=== PATIENT | male | born 1945 | race Caucasian/White ===

== ENCOUNTER 2018-12-11 05:37 | Inpatient (IN) ==
[2018-12-11] MEDS ORDERED: MAGNESIUM SULF RIDER 2 GM in PREMIX 1 EACH IV PRN (06:07)
[2018-12-11] MEDS ORDERED: diphenhydrAMINE CAP 25 MG CAPSULE PO ONE (06:07)
[2018-12-11] MEDS ORDERED: POTASSIUM CHLORIDE RIDER 10 MEQ in PREMIX 1 EACH IV PRN (06:07)
[2018-12-11] MEDS ORDERED: ASPIRIN 325 MG TABLET PO ONE (06:07)
[2018-12-11] MEDS ORDERED: DIAZEPAM 5 MG TABLET PO ONE (06:07)
[2018-12-11] MEDS ORDERED: diphenhydrAMINE CAP 25 MG CAPSULE ONE (07:19)
[2018-12-11] MEDS ORDERED: DIAZEPAM 5 MG TABLET ONE (07:19)
[2018-12-11] MEDS: SODIUM CHLORIDE 0.9% 1,000 ML IV SCH ×2 (07:21→20:42)
[2018-12-11] MEDS ORDERED: HEPARIN/NACL 0.9% 2 UNITS/ML 1,000 ML IV ONE (08:09)
[2018-12-11] MEDS ORDERED: SODIUM BICARBONATE 2.4 MEQ/5 ML VIAL ONE (08:09)
[2018-12-11] MEDS ORDERED: LIDOCAINE 1% 20 ML VIAL ONE (08:09)
[2018-12-11] MEDS ORDERED: MIDAZOLAM 2 MG/2 ML VIAL ONE (08:34)
[2018-12-11] MEDS ORDERED: fentaNYL 100 MCG/2 ML VIAL ONE (08:35)
[2018-12-11] MEDS ORDERED: NITROGLYCERIN SL 0.4 MG TABLET SL PRN (10:10)
[2018-12-11] MEDS ORDERED: ONDANSETRON 4 MG/2 ML VIAL IV PRN (10:12)
[2018-12-11] MEDS ORDERED: ZALEPLON 5 MG CAPSULE PO PRN (10:12)
[2018-12-11] MEDS ORDERED: AZITHROMYCIN 250 MG TABLET PO ONE (10:18)
[2018-12-11] MEDS ORDERED: ALBUTEROL/IPRATROPIUM 3 ML NEB RESP TX PRN (10:21)
[2018-12-11] MEDS ORDERED: MONTELUKAST 10 MG TABLET PO SCH (14:30)
[2018-12-11 14:43] LABS: Calcium 8.2 MG/DL (8.5-10.1)
[2018-12-11 14:46] LABS: Albumin 3.2 G/DL (3.4-5.0); Bilirubin,Direct 0.2 MG/DL (0.0-0.20); Bilirubin,Indirect 0.5 MG/DL (0.0-1.0); Bilirubin,Total 0.7 MG/DL (0.2-1.0); Total Protein 6.3 G/DL (6.4-8.3)
[2018-12-11 14:47] LABS: Basophils # 0.1 10*3/uL (0.0-0.2); Basophils % 0.7 % (0.0-0.8); Eosinophils # 0.8 10*3/uL (0.0-0.87); Immature Granulocytes % 0.3 %; Immature Granulocytes Absolute 0.02 #; Lymphocytes # 1.9 10*3/uL (1.4-4.0); Lymphocytes % 26.2 % (21.2-54.2); Mean Corpuscular Volume 81.8 FL (87-102); Mean Platelet Volume 11.5 FL (9.6-12.0); Monocytes % 7.7 % (1.7-12.7); Neutrophils % 54.1 % (38.7-73.9); Platelet Count 206 T/CUMM (130-400); Red Blood Count 4.89 MC/CUMM (3.8-5.5); Red Cell Distribution Width 17.6 % (9.3-17.3); White Blood Count 7.1 T/CUMM (4-12)
[2018-12-11 15:20] LABS: Eosinophils 14 % (0-10); Lymphocytes 25 % (20-55); Platelet Estimate Normal; Segmented Neutrophils 57 % (50-85); Total Cells Counted 100
[2018-12-11] MEDS ORDERED: FUROSEMIDE 20 MG TABLET PO SCH (16:00)
[2018-12-11] MEDS: INSULIN ASPART PROTAMINE/ASPART 70/30 100 UNIT/ML SUBCUT SCH (20:43)
[2018-12-11] MEDS: ATORVASTATIN 40 MG TABLET PO SCH (20:44)
[2018-12-11] MEDS: MONTELUKAST 10 MG TABLET PO SCH (20:44)
[2018-12-11] MEDS: SACUBITRIL/VALSARTAN 49-51 MG TABLET PO SCH (20:44)
[2018-12-11] MEDS: ALBUTEROL/IPRATROPIUM 3 ML NEB RESP TX SCH (21:01)
[2018-12-11] MEDS: BUDESONIDE 0.5 MG/2 ML NEB RESP TX SCH (21:01)
[2018-12-12] MEDS: ALBUTEROL/IPRATROPIUM 3 ML NEB RESP TX SCH ×4 (02:12→19:06)
[2018-12-12 06:00] LABS: Basophils % 0.5 % (0.0-0.8); Eosinophils # 0.7 10*3/uL (0.0-0.87); Eosinophils % 9.5 % (0.00-10.9); Hematocrit 38.5 VOL% (42.0-52.0); Hemoglobin 11.5 GM/DL (14.0-18.0); Immature Granulocytes % 0.4 %; Immature Granulocytes Absolute 0.03 #; Lymphocytes # 1.4 10*3/uL (1.4-4.0); Lymphocytes % 18.8 % (21.2-54.2); Mean Corpuscular HGB Conc 29.9 GM/DL (32-36); Mean Corpuscular Volume 82.3 FL (87-102); Mean Platelet Volume 11.8 FL (9.6-12.0); Monocytes % 7.3 % (1.7-12.7); Neutrophils % 63.5 % (38.7-73.9); Platelet Count 176 T/CUMM (130-400); Red Blood Count 4.68 MC/CUMM (3.8-5.5); Red Cell Distribution Width 17.5 % (9.3-17.3); White Blood Count 7.5 T/CUMM (4-12)
[2018-12-12] MEDS: SODIUM CHLORIDE 0.9% 1,000 ML IV SCH (06:06)
[2018-12-12 06:33] LABS: Calcium 8.2 MG/DL (8.5-10.1)
[2018-12-12] MEDS: BUDESONIDE 0.5 MG/2 ML NEB RESP TX SCH ×2 (07:13→19:06)
[2018-12-12] MEDS: SACUBITRIL/VALSARTAN 49-51 MG TABLET PO SCH ×2 (09:26→21:12)
[2018-12-12] MEDS: MELOXICAM 7.5 MG TABLET PO SCH (09:26)
[2018-12-12] MEDS: AZITHROMYCIN 250 MG TABLET PO SCH (09:27)
[2018-12-12] MEDS: MONTELUKAST 10 MG TABLET PO SCH ×2 (09:27→21:12)
[2018-12-12] MEDS: NEBIVOLOL 10 MG TABLET PO SCH (09:27)
[2018-12-12] MEDS: SPIRONOLACTONE 25 MG TABLET PO SCH (09:27)
[2018-12-12] MEDS: ASPIRIN EC 325 MG TABLET PO SCH (09:27)
[2018-12-12] MEDS: CLOPIDOGREL 75 MG TABLET PO SCH (09:27)
[2018-12-12] MEDS: FUROSEMIDE 40 MG/4 ML VIAL IV SCH ×2 (09:28→17:04)
[2018-12-12] MEDS: PANTOPRAZOLE 40 MG TABLET PO SCH (09:28)
[2018-12-12] MEDS: amLODIPine 10 MG TABLET PO SCH (09:28)
[2018-12-12] MEDS: INSULIN ASPART PROTAMINE/ASPART 70/30 100 UNIT/ML SUBCUT SCH ×2 (09:32→23:54)
[2018-12-12] MEDS: ATORVASTATIN 40 MG TABLET PO SCH (21:13)
[2018-12-13] MEDS: ALBUTEROL/IPRATROPIUM 3 ML NEB RESP TX SCH ×3 (00:57→13:42)
[2018-12-13 04:38] LABS: Basophils # 0.1 10*3/uL (0.0-0.2); Basophils % 0.7 % (0.0-0.8); Eosinophils # 1.1 10*3/uL (0.0-0.87); Eosinophils % 14.6 % (0.00-10.9); Hematocrit 39.3 VOL% (42.0-52.0); Hemoglobin 11.9 GM/DL (14.0-18.0); Immature Granulocytes % 0.3 %; Immature Granulocytes Absolute 0.02 #; Lymphocytes # 1.7 10*3/uL (1.4-4.0); Lymphocytes % 22.8 % (21.2-54.2); Mean Corpuscular HGB Conc 30.3 GM/DL (32-36); Mean Corpuscular Volume 81.2 FL (87-102); Mean Platelet Volume 11.6 FL (9.6-12.0); Monocytes % 7.2 % (1.7-12.7); Neutrophils % 54.4 % (38.7-73.9); Platelet Count 196 T/CUMM (130-400); Red Blood Count 4.84 MC/CUMM (3.8-5.5); Red Cell Distribution Width 17.5 % (9.3-17.3); White Blood Count 7.2 T/CUMM (4-12)
[2018-12-13 05:00] LABS: Calcium 8.4 MG/DL (8.5-10.1); Osmolality,Calculated 287.1 MOS/KG (273-304)
[2018-12-13 06:20] LABS: Eosinophils 10 % (0-10); Lymphocytes 10 % (20-55); Segmented Neutrophils 80 % (50-85); Total Cells Counted 100
[2018-12-13 06:21] LABS: Anisocytosis 1+; Platelet Estimate Adequate
[2018-12-13] MEDS: BUDESONIDE 0.5 MG/2 ML NEB RESP TX SCH (07:13)
[2018-12-13] MEDS: CLOPIDOGREL 75 MG TABLET PO SCH (08:55)
[2018-12-13] MEDS: FUROSEMIDE 40 MG/4 ML VIAL IV SCH (08:55)
[2018-12-13] MEDS: NEBIVOLOL 10 MG TABLET PO SCH (08:55)
[2018-12-13] MEDS: AZITHROMYCIN 250 MG TABLET PO SCH (08:55)
[2018-12-13] MEDS: MONTELUKAST 10 MG TABLET PO SCH (08:55)
[2018-12-13] MEDS: SACUBITRIL/VALSARTAN 49-51 MG TABLET PO SCH (08:55)
[2018-12-13] MEDS: MELOXICAM 7.5 MG TABLET PO SCH (08:55)
[2018-12-13] MEDS: amLODIPine 10 MG TABLET PO SCH (08:55)
[2018-12-13] MEDS: ASPIRIN EC 325 MG TABLET PO SCH (08:55)
[2018-12-13] MEDS: SPIRONOLACTONE 25 MG TABLET PO SCH (08:55)
[2018-12-13] MEDS: PANTOPRAZOLE 40 MG TABLET PO SCH (08:55)
[2018-12-13] MEDS: INSULIN ASPART PROTAMINE/ASPART 70/30 100 UNIT/ML SUBCUT SCH (08:56)
[2018-12-13 12:03] VITALS: BP 155/74
[2018-12-13] MEDS ORDERED: ASCORBIC ACID 500 MG TABLET PO SCH (21:00)
== END 2018-12-13 15:25 | disposition home or self-care (01) | DRG 286 ==
LOC: N.CL 05:37 → N.TELES 13:54
PROVIDERS: ADMIT Internal Medicine Cardiovascular Disease; ATTEND Internal Medicine Cardiovascular Disease
PROC: CLCCHCL (ICD-10-PCS; 2018-12-11 09:15)

== ENCOUNTER 2020-06-26 09:21 | Inpatient (IN) ==
[2020-06-26] MEDS ORDERED: MORPHINE 4 MG/1 ML VIAL IV STA (09:43)
[2020-06-26] MEDS ORDERED: FUROSEMIDE 100 MG/10 ML VIAL IV STA (09:43)
[2020-06-26] MEDS ORDERED: ALBUTEROL 2.5 MG/3 ML NEB RESP TX STA ×2 (09:47→11:56)
[2020-06-26 10:26] LABS: Basophils # 0.1 10*3/uL (0.0-0.2); Basophils % 0.6 % (0.0-0.8); Eosinophils # 0.1 10*3/uL (0.0-0.87); Eosinophils % 1.1 % (0.00-10.9); Hematocrit 39.6 VOL% (42.0-52.0); Hemoglobin 12.8 GM/DL (14.0-18.0); Immature Granulocytes % 0.6 %; Immature Granulocytes Absolute 0.07 #; Lymphocytes # 1.1 10*3/uL (1.4-4.0); Lymphocytes % 9.5 % (21.2-54.2); Mean Corpuscular HGB Conc 32.3 GM/DL (32-36); Mean Corpuscular Volume 85.2 FL (87-102); Mean Platelet Volume 11.4 FL (9.6-12.0); Monocytes % 5.2 % (1.7-12.7); Platelet Count 288 T/CUMM (130-400); Red Blood Count 4.65 MC/CUMM (3.8-5.5); Red Cell Distribution Width 15.8 % (9.3-17.3); Troponin I 0.481 NG/ML (0.00-0.045); White Blood Count 11.3 T/CUMM (4-12)
[2020-06-26 10:52] LABS: Bilirubin,Urine Negative (Negative); Blood, Urine Negative (Negative); Glucose,Urine (UA) 50 mg/dL (Negative); Hyaline Casts,Urine 5 /LPF (0-3); Ketones,Urine 20 mg/dL (Negative); Mucus,Urine Occasional /LPF (Occasional); Nitrite,Urine Negative (Negative); Protein,Urine 100 MG/DL; RBC,Urine 1 /HPF (0-4); Urine Appearance CLEAR (Clear); Urine Color Yellow (Yellow); Urine Specific Gravity 1.016 (1.001-1.035); Urine Urobilinogen < 2.0 EU/DL (0.2-1.0); WBC,Urine 1 /HPF (0-6)
[2020-06-26 10:54] LABS: Albumin 3.8 G/DL (3.4-5.0); Bilirubin,Total 1.5 MG/DL (0.2-1.0); Calcium 8.6 MG/DL (8.5-10.1); Total Protein 7.1 G/DL (6.4-8.3)
[2020-06-26] MEDS ORDERED: GLUCAGON 1 MG VIAL IM PRN (13:20)
[2020-06-26] MEDS ORDERED: DEXTROSE 50% 25 GM/50 ML VIAL IV PRN (13:20)
[2020-06-26] MEDS ORDERED: ONDANSETRON 4 MG/2 ML VIAL IV PRN (13:20)
[2020-06-26] MEDS ORDERED: ALBUTEROL/IPRATROPIUM 3 ML NEB RESP TX PRN (14:39)
[2020-06-26 16:04] LABS: CKMB % 7.4 %
[2020-06-26 16:12] LABS: Troponin I 2.4 NG/ML (0.00-0.045)
[2020-06-26] MEDS ORDERED: ASPIRIN 325 MG TABLET PO ONE (16:21)
[2020-06-26] MEDS ORDERED: NITROGLYCERIN SL 0.4 MG TABLET SL PRN (16:21)
[2020-06-26] MEDS ORDERED: MORPHINE 4 MG/1 ML VIAL IV PRN (16:21)
[2020-06-26] MEDS ORDERED: FUROSEMIDE 40 MG/4 ML VIAL IV ONE (17:04)
[2020-06-26] MEDS ORDERED: ALBUTEROL/IPRATROPIUM 3 ML NEB RESP TX SCH (19:00)
[2020-06-26 21:29] LABS: CKMB % 7.4 %
[2020-06-27 06:52] LABS: Basophils # 0.1 10*3/uL (0.0-0.2); Basophils % 0.9 % (0.0-0.8); Eosinophils # 0.3 10*3/uL (0.0-0.87); Eosinophils % 4.1 % (0.00-10.9); Hematocrit 36.5 VOL% (42.0-52.0); Hemoglobin 11.6 GM/DL (14.0-18.0); Immature Granulocytes % 0.5 %; Immature Granulocytes Absolute 0.03 #; Lymphocytes # 1.3 10*3/uL (1.4-4.0); Mean Corpuscular HGB Conc 31.8 GM/DL (32-36); Mean Corpuscular Volume 87.5 FL (87-102); Neutrophils % 63.5 % (38.7-73.9); Platelet Count 176 T/CUMM (130-400); Red Blood Count 4.17 MC/CUMM (3.8-5.5); Red Cell Distribution Width 16.3 % (9.3-17.3); White Blood Count 6.4 T/CUMM (4-12)
[2020-06-27 07:37] LABS: Calcium 8.3 MG/DL (8.5-10.1); Osmolality,Calculated 274.1 MOS/KG (273-304)
[2020-06-27] MEDS: FUROSEMIDE 40 MG/4 ML VIAL IV SCH (08:52)
[2020-06-27] MEDS: PANTOPRAZOLE 40 MG TABLET PO SCH (08:52)
[2020-06-27] MEDS: POTASSIUM CHLORIDE 20 MEQ TABLET PO PRN ×3 (08:56→23:51)
[2020-06-27] MEDS ORDERED: methylPREDNISolone SOD SUC 125 MG/2 ML VIAL IV ONE (09:26)
[2020-06-27] MEDS ORDERED: ALBUTEROL/IPRATROPIUM 3 ML NEB RESP TX ONE (09:26)
[2020-06-27 09:32] LABS: Troponin I 1.74 NG/ML (0.00-0.045)
[2020-06-27] MEDS ORDERED: ENOXAPARIN 40 MG/0.4 ML SYRINGE SUBCUT SCH (12:00)
[2020-06-27] MEDS: ALBUTEROL/IPRATROPIUM 3 ML NEB RESP TX SCH ×2 (13:26→19:11)
[2020-06-27] MEDS: ENOXAPARIN 100 MG/ML SYRINGE SUBCUT SCH ×2 (14:07→23:51)
[2020-06-27] MEDS: carvediloL 12.5 MG TABLET PO SCH (16:42)
[2020-06-27] MEDS: methylPREDNISolone SOD SUC 40 MG/1 ML VIAL IV SCH (21:24)
[2020-06-27] MEDS: SACUBITRIL/VALSARTAN 49-51 MG TABLET PO SCH (21:24)
[2020-06-28] MEDS: ALBUTEROL/IPRATROPIUM 3 ML NEB RESP TX SCH ×4 (00:59→19:10)
[2020-06-28 06:49] LABS: Hematocrit 35.4 VOL% (42.0-52.0); Hemoglobin 11.1 GM/DL (14.0-18.0); Immature Granulocytes % 0.7 %; Immature Granulocytes Absolute 0.04 #; Lymphocytes # 0.4 10*3/uL (1.4-4.0); Lymphocytes % 7.5 % (21.2-54.2); Mean Corpuscular HGB Conc 31.4 GM/DL (32-36); Mean Corpuscular Volume 87.8 FL (87-102); Mean Platelet Volume 11.5 FL (9.6-12.0); Monocytes % 4.4 % (1.7-12.7); Neutrophils % 87.4 % (38.7-73.9); Platelet Count 244 T/CUMM (130-400); Red Blood Count 4.03 MC/CUMM (3.8-5.5); Red Cell Distribution Width 15.9 % (9.3-17.3); White Blood Count 5.7 T/CUMM (4-12)
[2020-06-28 07:12] LABS: Calcium 8.8 MG/DL (8.5-10.1); Osmolality,Calculated 285.8 MOS/KG (273-304)
[2020-06-28] MEDS: SPIRONOLACTONE 25 MG TABLET PO SCH (09:18)
[2020-06-28] MEDS: CLOPIDOGREL 75 MG TABLET PO SCH (09:18)
[2020-06-28] MEDS: PANTOPRAZOLE 40 MG TABLET PO SCH (09:18)
[2020-06-28] MEDS: SACUBITRIL/VALSARTAN 49-51 MG TABLET PO SCH ×2 (09:18→22:05)
[2020-06-28] MEDS: ATORVASTATIN 80 MG TABLET PO SCH (09:18)
[2020-06-28] MEDS: FUROSEMIDE 40 MG/4 ML VIAL IV SCH (09:19)
[2020-06-28] MEDS: methylPREDNISolone SOD SUC 40 MG/1 ML VIAL IV SCH (09:19)
[2020-06-28] MEDS: carvediloL 12.5 MG TABLET PO SCH ×2 (09:19→16:17)
[2020-06-28] MEDS: ASPIRIN EC 325 MG TABLET PO SCH (09:21)
[2020-06-28] MEDS ORDERED: DEXTROSE 50% 25 GM/50 ML VIAL IV PRN ×2 (09:25→13:13)
[2020-06-28] MEDS ORDERED: GLUCAGON 1 MG VIAL IM PRN ×2 (09:25→13:13)
[2020-06-28] MEDS: ENOXAPARIN 100 MG/ML SYRINGE SUBCUT SCH (11:37)
[2020-06-28] MEDS: INSULIN LISPRO 100 UNIT/ML SUBCUT SCH ×2 (16:17→22:06)
[2020-06-29] MEDS: ENOXAPARIN 100 MG/ML SYRINGE SUBCUT SCH ×3 (00:11→23:55)
[2020-06-29] MEDS: ALBUTEROL/IPRATROPIUM 3 ML NEB RESP TX SCH ×5 (02:02→23:57)
[2020-06-29 05:14] LABS: Hematocrit 32.4 VOL% (42.0-52.0); Hemoglobin 10.5 GM/DL (14.0-18.0); Immature Granulocytes % 1.2 %; Immature Granulocytes Absolute 0.09 #; Lymphocytes # 0.9 10*3/uL (1.4-4.0); Lymphocytes % 11.5 % (21.2-54.2); Mean Corpuscular HGB Conc 32.4 GM/DL (32-36); Mean Corpuscular Volume 87.6 FL (87-102); Mean Platelet Volume 11.4 FL (9.6-12.0); Monocytes % 7.3 % (1.7-12.7); Platelet Count 207 T/CUMM (130-400); Red Cell Distribution Width 16.5 % (9.3-17.3); White Blood Count 7.8 T/CUMM (4-12)
[2020-06-29 05:38] LABS: Calcium 8.8 MG/DL (8.5-10.1); Osmolality,Calculated 290.5 MOS/KG (273-304)
[2020-06-29] MEDS: ATORVASTATIN 80 MG TABLET PO SCH (09:29)
[2020-06-29] MEDS: CLOPIDOGREL 75 MG TABLET PO SCH (09:29)
[2020-06-29] MEDS: carvediloL 12.5 MG TABLET PO SCH (09:29)
[2020-06-29] MEDS: INSULIN LISPRO 100 UNIT/ML SUBCUT SCH ×4 (09:30→20:36)
[2020-06-29] MEDS: ASPIRIN EC 325 MG TABLET PO SCH (09:30)
[2020-06-29] MEDS: SACUBITRIL/VALSARTAN 49-51 MG TABLET PO SCH ×2 (09:30→20:36)
[2020-06-29] MEDS: predniSONE 20 MG TABLET PO SCH (09:30)
[2020-06-29] MEDS: SPIRONOLACTONE 25 MG TABLET PO SCH (09:30)
[2020-06-29] MEDS: PANTOPRAZOLE 40 MG TABLET PO SCH (09:30)
[2020-06-29] MEDS: FUROSEMIDE 40 MG/4 ML VIAL IV SCH (09:30)
[2020-06-29] MEDS ORDERED: AZITHROMYCIN INJ 500 MG in SODIUM CHLORIDE 0.9% 250 ML IV SCH (11:00)
[2020-06-29] MEDS ORDERED: cefTRIAXone 1,000 MG in SODIUM CHLORIDE 0.9% 100 ML IV SCH (11:00)
[2020-06-29] MEDS: cefTRIAXone 1,000 MG in SYRINGE 1 EACH IV SCH (11:50)
[2020-06-29] MEDS: AZITHROMYCIN INJ 500 MG in SODIUM CHLORIDE 0.9% 250 ML IV SCH (13:35)
[2020-06-29] MEDS: NEBIVOLOL 5 MG TABLET PO SCH (20:36)
[2020-06-30 05:51] LABS: Eosinophils # 0.2 10*3/uL (0.0-0.87); Eosinophils % 2.8 % (0.00-10.9); Hematocrit 37.4 VOL% (42.0-52.0); Hemoglobin 11.3 GM/DL (14.0-18.0); Immature Granulocytes % 0.5 %; Immature Granulocytes Absolute 0.04 #; Lymphocytes % 13.5 % (21.2-54.2); Mean Corpuscular HGB Conc 30.2 GM/DL (32-36); Mean Corpuscular Volume 91.7 FL (87-102); Mean Platelet Volume 11.7 FL (9.6-12.0); Monocytes % 8.7 % (1.7-12.7); Neutrophils % 74.5 % (38.7-73.9); Platelet Count 217 T/CUMM (130-400); Red Blood Count 4.08 MC/CUMM (3.8-5.5); Red Cell Distribution Width 16.1 % (9.3-17.3); White Blood Count 7.5 T/CUMM (4-12)
[2020-06-30 06:09] LABS: Calcium 8.7 MG/DL (8.5-10.1); Osmolality,Calculated 290.5 MOS/KG (273-304)
[2020-06-30] MEDS: ALBUTEROL/IPRATROPIUM 3 ML NEB RESP TX SCH ×3 (07:31→19:21)
[2020-06-30] MEDS: ASPIRIN EC 325 MG TABLET PO SCH (09:19)
[2020-06-30] MEDS: SACUBITRIL/VALSARTAN 49-51 MG TABLET PO SCH ×2 (09:19→20:55)
[2020-06-30] MEDS: PANTOPRAZOLE 40 MG TABLET PO SCH (09:19)
[2020-06-30] MEDS: CLOPIDOGREL 75 MG TABLET PO SCH (09:20)
[2020-06-30] MEDS: SPIRONOLACTONE 25 MG TABLET PO SCH (09:20)
[2020-06-30] MEDS: ATORVASTATIN 80 MG TABLET PO SCH (09:20)
[2020-06-30] MEDS: predniSONE 20 MG TABLET PO SCH (09:20)
[2020-06-30] MEDS: NEBIVOLOL 5 MG TABLET PO SCH ×2 (09:25→20:55)
[2020-06-30] MEDS: INSULIN LISPRO 100 UNIT/ML SUBCUT SCH ×4 (10:25→20:56)
[2020-06-30] MEDS: cefTRIAXone 1,000 MG in SYRINGE 1 EACH IV SCH (11:15)
[2020-06-30] MEDS: ENOXAPARIN 100 MG/ML SYRINGE SUBCUT SCH ×2 (11:53→23:35)
[2020-06-30] MEDS: AZITHROMYCIN INJ 500 MG in SODIUM CHLORIDE 0.9% 250 ML IV SCH (14:09)
[2020-06-30] MEDS: FUROSEMIDE 40 MG/4 ML VIAL IV SCH (16:38)
[2020-07-01] MEDS: ALBUTEROL/IPRATROPIUM 3 ML NEB RESP TX SCH ×3 (00:09→12:45)
[2020-07-01 04:55] LABS: Basophils % 0.1 % (0.0-0.8); Eosinophils # 0.4 10*3/uL (0.0-0.87); Eosinophils % 5.6 % (0.00-10.9); Hematocrit 36.8 VOL% (42.0-52.0); Hemoglobin 11.3 GM/DL (14.0-18.0); Immature Granulocytes % 1.6 %; Immature Granulocytes Absolute 0.12 #; Lymphocytes # 0.9 10*3/uL (1.4-4.0); Lymphocytes % 11.2 % (21.2-54.2); Mean Corpuscular HGB Conc 30.7 GM/DL (32-36); Mean Corpuscular Volume 90.9 FL (87-102); Mean Platelet Volume 11.6 FL (9.6-12.0); Monocytes % 8.1 % (1.7-12.7); Neutrophils % 73.4 % (38.7-73.9); Platelet Count 229 T/CUMM (130-400); Red Blood Count 4.05 MC/CUMM (3.8-5.5); Red Cell Distribution Width 16.1 % (9.3-17.3); White Blood Count 7.7 T/CUMM (4-12)
[2020-07-01 05:35] LABS: Calcium 8.5 MG/DL (8.5-10.1); Osmolality,Calculated 293.1 MOS/KG (273-304)
[2020-07-01] MEDS: FUROSEMIDE 40 MG/4 ML VIAL IV SCH (08:32)
[2020-07-01] MEDS: ASPIRIN EC 325 MG TABLET PO SCH (08:32)
[2020-07-01] MEDS: NEBIVOLOL 5 MG TABLET PO SCH (08:32)
[2020-07-01] MEDS: SACUBITRIL/VALSARTAN 49-51 MG TABLET PO SCH (08:32)
[2020-07-01] MEDS: ATORVASTATIN 80 MG TABLET PO SCH (08:32)
[2020-07-01] MEDS: SPIRONOLACTONE 25 MG TABLET PO SCH (08:33)
[2020-07-01] MEDS: predniSONE 20 MG TABLET PO SCH (08:33)
[2020-07-01] MEDS: CLOPIDOGREL 75 MG TABLET PO SCH (08:33)
[2020-07-01] MEDS: PANTOPRAZOLE 40 MG TABLET PO SCH (08:33)
[2020-07-01] MEDS: cefTRIAXone 1,000 MG in SYRINGE 1 EACH IV SCH (11:24)
[2020-07-01] MEDS: INSULIN LISPRO 100 UNIT/ML SUBCUT SCH ×2 (11:25)
[2020-07-01] MEDS: ENOXAPARIN 100 MG/ML SYRINGE SUBCUT SCH (11:30)
[2020-07-01 11:56] VITALS: BP 138/70
== END 2020-07-01 13:27 | disposition home health service (06) | DRG 280 ==
LOC: N.ED 09:21 → N.EDINP 13:19 → N.TELES 14:54
PROVIDERS: ADMIT Internal Medicine; ATTEND Internal Medicine